=== PATIENT | female | born 1965 | race Caucasian/White ===

== ENCOUNTER 2022-10-14 12:09 | Inpatient (IN) | payer BC, OTHER ==
[2022-10-14 12:31] VITALS: BMI 17.4
[2022-10-14] MEDS ORDERED: SODIUM CHLORIDE 1,293 ML IV ONE (14:25)
[2022-10-14] MEDS ORDERED: methylPREDNISolone NA SUCC 40 MG/1 ML VIAL IVPUSH ONE (14:28)
[2022-10-14] MEDS ORDERED: methylPREDNISolone NA SUCC 125 MG/2 ML VIAL IVPB ONE (14:29)
[2022-10-14] MEDS ORDERED: ACETAMINOPHEN 1000 MG/100 ML BAG IVPB ONE (14:30)
[2022-10-14] MEDS ORDERED: ACETAMINOPHEN INJECTION 100 ML IVPB ONE (14:37)
[2022-10-14] MEDS ORDERED: methylPREDNISolone NA SUCC 125 MG/2 ML VIAL ONE (14:37)
[2022-10-14] MEDS ORDERED: ALBUTEROL SO4 2.5/IPRATROPIUM 0.5 INH SOL 3 ML VIAL.NEB. NEB ONE (14:38)
[2022-10-14] MEDS: ALBUTEROL SO4 2.5/IPRATROPIUM 0.5 INH SOL 3 ML VIAL.NEB. NEB SCH ×2 (14:48→15:03)
[2022-10-14] MEDS ORDERED: CEFTRIAXONE 1 GM in DEXTROSE 5%-WATER - 100 ML IVPB ONE (14:51)
[2022-10-14] MEDS ORDERED: AZITHROMYCIN IVPB 500 MG in DEXTROSE 5%-WATER - 250 ML IVPB ONE (14:52)
[2022-10-14 14:53] LABS: BASO % 0.3 % (0-2.0); HEMATOCRIT 37.7 % (32.4-45.2); HEMOGLOBIN 12.1 GM/dL (10.7-15.3); LYMPH % 10.3 % (8-40); MCH 29.2 pg (25.7-33.7); MCHC 32.2 g/dl (32.0-36.0); MEAN CELL VOLUME 90.5 fl (80-96); MEAN PLT VOLUME 6.6 fl (7.5-11.1); MONO % 8.6 % (3.8-10.2); NEUT % 80.8 % (42.8-82.8); PLATELET COUNT 545 10^3/uL (134-434); RBC 4.16 M/mm3 (3.60-5.2); RDW 13.1 % (11.6-15.6); WHITE BLOOD COUNT 6.7 K/mm3 (4.0-10.0)
[2022-10-14 15:00] LABS: INR 0.99 (0.83-1.09); PROTHROMBIN TIME (PATIENT) 11.4 SEC (9.7-13.0)
[2022-10-14] MEDS ORDERED: TERBUTALINE SULFATE 1 MG/1 ML VIAL SQ ONE ×2 (15:11→15:26)
[2022-10-14 15:15] LABS: ALBUMIN 3.4 g/dl (3.4-5.0); BLOOD UREA NITROGEN 10.5 mg/dL (7-18)
[2022-10-14 15:18] LABS: CREATININE 0.4 mg/dL (0.55-1.3)
[2022-10-14 15:20] LABS: BILIRUBIN,TOTAL 0.2 mg/dL (0.2-1); TOT PROT 7.1 g/dl (6.4-8.2)
[2022-10-14 15:26] LABS: VENOUS BASE EXCESS 4.5 mmol/L (-2-2); VENOUS O2 SATURATION 77.1 % (70-80); VENOUS PCO2 60.3 mmHg (38-52); VENOUS PH 7.341 (7.310-7.410)
[2022-10-14] MEDS ORDERED: cefTRIAXone SODIUM 1 GM VIAL ONE (15:27)
[2022-10-14] MEDS ORDERED: AZITHROMYCIN IVPB 500 MG/250 ML BAG IVPB ONE (15:27)
[2022-10-14 16:02] LABS: LACTIC ACID 2.4 mmol/L (0.4-2.0)
[2022-10-14] MEDS ORDERED: ALBUTEROL SO4 HFA INHALER IH PRN (17:45)
[2022-10-14] MEDS ORDERED: METHOCARBAMOL 500 MG TABLET PO PRN (17:45)
[2022-10-14] MEDS ORDERED: oxyCODONE HCL 5 MG TABLET PO PRN (17:52)
[2022-10-14] MEDS ORDERED: ALBUTEROL SO4 2.5/IPRATROPIUM 0.5 INH SOL 3 ML VIAL.NEB. NEB PRN (17:52)
[2022-10-14] MEDS ORDERED: ACETAMINOPHEN 325 MG TABLET (FP) PO PRN (17:52)
[2022-10-14 19:29] LABS: LACTIC ACID 2.8 mmol/L (0.4-2.0)
[2022-10-14] MEDS ORDERED: PATIENT'S OWN MEDICATION (NON-FORMULARY) (Tiotropium Bromide [Spiriva Handihaler] 18 MCG C IH SCH (22:00)
[2022-10-14] MEDS: methylPREDNISolone NA SUCC 40 MG/1 ML VIAL IVPUSH SCH (22:00)
[2022-10-14] MEDS: HEPARIN NA (PORCINE) 5,000 UNITS/ML 1ML VIAL SQ SCH (22:01)
[2022-10-14] MEDS: TIOTROPIUM BROMIDE 2.5 MCG (SPIRIVA) RESPIMAT INHALER IH SCH (22:06)
[2022-10-15] MEDS: methylPREDNISolone NA SUCC 40 MG/1 ML VIAL IVPUSH SCH ×3 (03:15→21:16)
[2022-10-15] MEDS ORDERED: methylPREDNISolone NA SUCC 40 MG/1 ML VIAL IVPUSH SCH ×2 (10:00→18:00)
[2022-10-15] MEDS ORDERED: AZITHROMYCIN IVPB 500 MG in DEXTROSE 5%-WATER - 250 ML IVPB SCH (10:00)
[2022-10-15] MEDS: HEPARIN NA (PORCINE) 5,000 UNITS/ML 1ML VIAL SQ SCH ×2 (10:02→21:16)
[2022-10-15] MEDS: PANTOPRAZOLE 20 MG TABLET PO SCH (10:02)
[2022-10-15 10:15] LABS: BASO % 0.4 % (0-2.0); HEMATOCRIT 38.1 % (32.4-45.2); HEMOGLOBIN 12.3 GM/dL (10.7-15.3); LYMPH % 9.9 % (8-40); MCH 29.4 pg (25.7-33.7); MCHC 32.3 g/dl (32.0-36.0); MEAN CELL VOLUME 91.1 fl (80-96); MEAN PLT VOLUME 7.2 fl (7.5-11.1); NEUT % 80.7 % (42.8-82.8); PLATELET COUNT 499 10^3/uL (134-434); RBC 4.18 M/mm3 (3.60-5.2); RDW 13.2 % (11.6-15.6)
[2022-10-15 10:43] LABS: ALBUMIN 3.3 g/dl (3.4-5.0); BLOOD UREA NITROGEN 11.4 mg/dL (7-18); CALCIUM 9.5 mg/dL (8.5-10.1); MAGNESIUM 2.4 mg/dL (1.8-2.4)
[2022-10-15 10:46] LABS: CREATININE 0.5 mg/dL (0.55-1.3)
[2022-10-15 10:48] LABS: BILIRUBIN,TOTAL 0.3 mg/dL (0.2-1); TOT PROT 7.2 g/dl (6.4-8.2)
[2022-10-15] MEDS: TIOTROPIUM BROMIDE 2.5 MCG (SPIRIVA) RESPIMAT INHALER IH SCH ×2 (11:31→21:15)
[2022-10-15] MEDS: AZITHROMYCIN IVPB 500 MG/250 ML BAG IVPB SCH ×2 (11:42→17:49)
[2022-10-15] MEDS: ALBUTEROL SO4 0.083% IH SOL 2.5 MG/3 ML VIAL.NEB. NEB SCH ×3 (12:20→21:48)
[2022-10-15] MEDS: DOXYCYCLINE HYCLATE 100 MG CAPSULE PO SCH (17:59)
[2022-10-16] MEDS: methylPREDNISolone NA SUCC 40 MG/1 ML VIAL IVPUSH SCH ×3 (04:36→21:43)
[2022-10-16] MEDS: ACETAMINOPHEN 325 MG TABLET (FP) PO PRN ×3 (04:37→17:37)
[2022-10-16] MEDS: ALBUTEROL SO4 0.083% IH SOL 2.5 MG/3 ML VIAL.NEB. NEB SCH ×4 (08:30→20:16)
[2022-10-16] MEDS: PANTOPRAZOLE 20 MG TABLET PO SCH (09:21)
[2022-10-16] MEDS: HEPARIN NA (PORCINE) 5,000 UNITS/ML 1ML VIAL SQ SCH ×2 (09:21→21:43)
[2022-10-16] MEDS: guaiFENesin 600 MG TABLET.ER (FP) PO SCH ×2 (09:21→21:43)
[2022-10-16] MEDS: NICOTINE 7 MG/24 HOURS TOPICAL PATCH TD SCH (09:21)
[2022-10-16] MEDS: DOXYCYCLINE HYCLATE 100 MG CAPSULE PO SCH ×2 (09:21→17:28)
[2022-10-16 09:35] LABS: HEMOGLOBIN 11.8 GM/dL (10.7-15.3); MCH 29.2 pg (25.7-33.7); MEAN CELL VOLUME 91.1 fl (80-96); MEAN PLT VOLUME 7.6 fl (7.5-11.1); PLATELET COUNT 583 10^3/uL (134-434); RBC 4.06 M/mm3 (3.60-5.2); RDW 13.4 % (11.6-15.6); WHITE BLOOD COUNT 13.5 K/mm3 (4.0-10.0)
[2022-10-16] MEDS: TIOTROPIUM BROMIDE 2.5 MCG (SPIRIVA) RESPIMAT INHALER IH SCH ×2 (09:44→21:46)
[2022-10-16 10:12] LABS: ALBUMIN 3.2 g/dl (3.4-5.0); BLOOD UREA NITROGEN 19.4 mg/dL (7-18)
[2022-10-16 10:14] LABS: BILIRUBIN,TOTAL 0.4 mg/dL (0.2-1); CREATININE 0.6 mg/dL (0.55-1.3); TOT PROT 6.8 g/dl (6.4-8.2)
[2022-10-16 10:17] LABS: CALCIUM 9.1 mg/dL (8.5-10.1)
[2022-10-16] MEDS: LIDOCAINE 5% TOPICAL PATCH TP SCH (11:55)
[2022-10-16] MEDS: LIDOCAINE PATCH REMOVAL MC SCH (21:43)
[2022-10-17] MEDS: methylPREDNISolone NA SUCC 40 MG/1 ML VIAL IVPUSH SCH (05:11)
[2022-10-17] MEDS: ALBUTEROL SO4 0.083% IH SOL 2.5 MG/3 ML VIAL.NEB. NEB SCH ×4 (07:35→20:15)
[2022-10-17 09:00] LABS: HEMATOCRIT 39.7 % (32.4-45.2); HEMOGLOBIN 12.6 GM/dL (10.7-15.3); MCHC 31.7 g/dl (32.0-36.0); MEAN CELL VOLUME 91.6 fl (80-96); MEAN PLT VOLUME 7.6 fl (7.5-11.1); PLATELET COUNT 586 10^3/uL (134-434); RBC 4.34 M/mm3 (3.60-5.2); RDW 13.6 % (11.6-15.6); WHITE BLOOD COUNT 15.6 K/mm3 (4.0-10.0)
[2022-10-17] MEDS: HEPARIN NA (PORCINE) 5,000 UNITS/ML 1ML VIAL SQ SCH ×2 (09:52→21:33)
[2022-10-17] MEDS: LIDOCAINE 5% TOPICAL PATCH TP SCH (09:53)
[2022-10-17] MEDS: NICOTINE 7 MG/24 HOURS TOPICAL PATCH TD SCH (09:54)
[2022-10-17] MEDS: PANTOPRAZOLE 20 MG TABLET PO SCH (09:54)
[2022-10-17] MEDS: guaiFENesin 600 MG TABLET.ER (FP) PO SCH ×2 (09:54→21:33)
[2022-10-17] MEDS: DOXYCYCLINE HYCLATE 100 MG CAPSULE PO SCH ×2 (09:55→17:48)
[2022-10-17] MEDS: TIOTROPIUM BROMIDE 2.5 MCG (SPIRIVA) RESPIMAT INHALER IH SCH ×2 (09:55→21:34)
[2022-10-17] MEDS: ACETAMINOPHEN 325 MG TABLET (FP) PO PRN (09:56)
[2022-10-17] MEDS ORDERED: methylPREDNISolone NA SUCC 40 MG/1 ML VIAL IVPUSH SCH (10:00)
[2022-10-17] MEDS: DOCUSATE SODIUM 100 MG CAPSULE (FP) PO PRN (13:59)
[2022-10-17] MEDS: LIDOCAINE PATCH REMOVAL MC SCH (21:33)
[2022-10-18] MEDS: ALBUTEROL SO4 0.083% IH SOL 2.5 MG/3 ML VIAL.NEB. NEB SCH ×4 (07:23→19:43)
[2022-10-18] MEDS ORDERED: methylPREDNISolone NA SUCC 40 MG/1 ML VIAL IVPUSH SCH (08:33)
[2022-10-18] MEDS: TIOTROPIUM BROMIDE 2.5 MCG (SPIRIVA) RESPIMAT INHALER IH SCH ×2 (10:29→22:36)
[2022-10-18] MEDS: HEPARIN NA (PORCINE) 5,000 UNITS/ML 1ML VIAL SQ SCH ×2 (10:30→22:35)
[2022-10-18] MEDS: NICOTINE 7 MG/24 HOURS TOPICAL PATCH TD SCH (10:31)
[2022-10-18] MEDS: guaiFENesin 600 MG TABLET.ER (FP) PO SCH ×2 (10:31→22:35)
[2022-10-18] MEDS: DOCUSATE SODIUM 100 MG CAPSULE (FP) PO PRN (10:31)
[2022-10-18] MEDS: DOXYCYCLINE HYCLATE 100 MG CAPSULE PO SCH ×2 (10:31→18:36)
[2022-10-18] MEDS: PANTOPRAZOLE 20 MG TABLET PO SCH (10:31)
[2022-10-18] MEDS: LIDOCAINE 5% TOPICAL PATCH TP SCH (10:31)
[2022-10-18] MEDS ORDERED: methylPREDNISolone NA SUCC 40 MG/1 ML VIAL IVPUSH ONE (16:25)
[2022-10-18 18:07] LABS: ARTERIAL BLD GAS O2 SATURATION 95.7 % (95-98); ARTERIAL BLOOD GAS pH 7.328 (7.350-7.450)
[2022-10-18 18:19] LABS: ALLENS TEST POSITIVE
[2022-10-18] MEDS: LIDOCAINE PATCH REMOVAL MC SCH (22:35)
[2022-10-19] MEDS: ALBUTEROL SO4 0.083% IH SOL 2.5 MG/3 ML VIAL.NEB. NEB SCH ×4 (08:20→19:47)
[2022-10-19] MEDS: guaiFENesin 600 MG TABLET.ER (FP) PO SCH ×2 (10:22→21:22)
[2022-10-19] MEDS: methylPREDNISolone NA SUCC 40 MG/1 ML VIAL IVPUSH SCH (10:22)
[2022-10-19] MEDS: HEPARIN NA (PORCINE) 5,000 UNITS/ML 1ML VIAL SQ SCH ×2 (10:22→21:22)
[2022-10-19] MEDS: TIOTROPIUM BROMIDE 2.5 MCG (SPIRIVA) RESPIMAT INHALER IH SCH ×2 (10:23→21:24)
[2022-10-19] MEDS: NICOTINE 7 MG/24 HOURS TOPICAL PATCH TD SCH (10:23)
[2022-10-19] MEDS: LIDOCAINE 5% TOPICAL PATCH TP SCH (10:23)
[2022-10-19] MEDS: DOXYCYCLINE HYCLATE 100 MG CAPSULE PO SCH ×2 (10:24→18:25)
[2022-10-19] MEDS: PANTOPRAZOLE 20 MG TABLET PO SCH (10:24)
[2022-10-19] MEDS: LIDOCAINE PATCH REMOVAL MC SCH (21:27)
[2022-10-20] MEDS: ALBUTEROL SO4 0.083% IH SOL 2.5 MG/3 ML VIAL.NEB. NEB SCH ×4 (07:45→20:09)
[2022-10-20 09:24] LABS: HEMATOCRIT 39.3 % (32.4-45.2); HEMOGLOBIN 12.4 GM/dL (10.7-15.3); MCH 28.9 pg (25.7-33.7); MCHC 31.5 g/dl (32.0-36.0); MEAN CELL VOLUME 91.7 fl (80-96); MEAN PLT VOLUME 7.1 fl (7.5-11.1); PLATELET COUNT 357 10^3/uL (134-434); RBC 4.29 M/mm3 (3.60-5.2); RDW 13.8 % (11.6-15.6); WHITE BLOOD COUNT 15.4 K/mm3 (4.0-10.0)
[2022-10-20 09:41] LABS: CALCIUM 9.2 mg/dL (8.5-10.1)
[2022-10-20 09:42] LABS: BLOOD UREA NITROGEN 19.3 mg/dL (7-18)
[2022-10-20 09:45] LABS: CREATININE 0.6 mg/dL (0.55-1.3)
[2022-10-20] MEDS: PANTOPRAZOLE 20 MG TABLET PO SCH (11:13)
[2022-10-20] MEDS: DOXYCYCLINE HYCLATE 100 MG CAPSULE PO SCH ×2 (11:13→17:41)
[2022-10-20] MEDS: NICOTINE 7 MG/24 HOURS TOPICAL PATCH TD SCH (11:13)
[2022-10-20] MEDS: HEPARIN NA (PORCINE) 5,000 UNITS/ML 1ML VIAL SQ SCH ×2 (11:14→23:13)
[2022-10-20] MEDS: guaiFENesin 600 MG TABLET.ER (FP) PO SCH ×2 (11:14→23:13)
[2022-10-20] MEDS: LIDOCAINE 5% TOPICAL PATCH TP SCH (11:14)
[2022-10-20] MEDS: TIOTROPIUM BROMIDE 2.5 MCG (SPIRIVA) RESPIMAT INHALER IH SCH ×2 (11:15→23:14)
[2022-10-20] MEDS: methylPREDNISolone NA SUCC 40 MG/1 ML VIAL IVPUSH SCH (11:15)
[2022-10-20] MEDS: LIDOCAINE PATCH REMOVAL MC SCH (23:17)
[2022-10-21] MEDS: ALBUTEROL SO4 0.083% IH SOL 2.5 MG/3 ML VIAL.NEB. NEB SCH ×2 (08:30→12:26)
[2022-10-21] MEDS: NICOTINE 7 MG/24 HOURS TOPICAL PATCH TD SCH (09:24)
[2022-10-21] MEDS: LIDOCAINE 5% TOPICAL PATCH TP SCH (09:24)
[2022-10-21] MEDS: methylPREDNISolone NA SUCC 40 MG/1 ML VIAL IVPUSH SCH (09:24)
[2022-10-21] MEDS: HEPARIN NA (PORCINE) 5,000 UNITS/ML 1ML VIAL SQ SCH (09:24)
[2022-10-21] MEDS: DOXYCYCLINE HYCLATE 100 MG CAPSULE PO SCH (09:25)
[2022-10-21] MEDS: guaiFENesin 600 MG TABLET.ER (FP) PO SCH (09:25)
[2022-10-21] MEDS: TIOTROPIUM BROMIDE 2.5 MCG (SPIRIVA) RESPIMAT INHALER IH SCH (09:25)
[2022-10-21] MEDS: PANTOPRAZOLE 20 MG TABLET PO SCH (09:25)
[2022-10-21 10:41] VITALS: BP 120/74; PULSE 101; RESP 19; TEMP 99.6
== END 2022-10-21 15:30 | disposition home or self-care (01) | DRG 191 ==
LOC: JER 12:09 → JERBED 16:17 → J7W 20:25
PROVIDERS: ADMIT Internal Medicine; ATTEND Internal Medicine
DX: J44.1 Chronic obstructive pulmonary disease with (acute) exacerbation (principal); E87.29 Other acidosis; F11.20 Opioid dependence, uncomplicated; R64 Cachexia; Z68.1 Body mass index [BMI] 19.9 or less, adult; J45.901 Unspecified asthma with (acute) exacerbation; F41.9 Anxiety disorder, unspecified; F17.210 Nicotine dependence, cigarettes, uncomplicated
CPT/HCPCS: 0241U-QW; 36415; 36600; 71045-TC-FY; 80048; 80053; 82550; 82553; 82803; 82962; 83605; 83735; 85025; 85027; 85610; 85730; 87040; 87070; 87086; 87186; 87205; 93005; 93010; 94640; 94660; 94761; 99285-25; J1644